=== PATIENT | female | born 1960 | race Hispanic/Latino ===

== ENCOUNTER 2017-03-20 09:41 | Inpatient (IN) | payer MEDICARE ==
[2017-03-20] MEDS ORDERED: DULCOLAX PR PRN (10:24)
[2017-03-20] MEDS ORDERED: ALUM-MAG HYDROX-SIMETH 200-200-20MG/5ML PO PRN (10:24)
--- NOTE | 2017-03-20 11:46 | Consultation ---
History of Present Illness Consult date: 03/20/17 Requesting physician: ADRIAN RASHID Consult reason: tachycardia (SVT) History of present illness: The pt is a 56 YO female with a past medical history significant for liver disease, ETOH abuse, tobacco use, COPD, GERD, hypertension, bipolar disorder, chronic low back pain, and anxiety. She is previously unknown to our practice. She was admitted to acute rehab on 03/15/2017 following hospitalization at [facility] for AMS with abnormal liver function tests and elevated ammonia levels. She is s /p paracentesis on 03/09/17 with 3.2L of fluid removed. She developed SVT this AM and thus cardiology was consulted. On initial evaluation, pt c/o SOB and palpitations. She was placed on bedside monitor which revealed SVT, HR 180s, with hypotension. Pt's HR was not responsive to carotid massage. Code METS was called. She was given IV adenosine (6mg -> 12mg) and was successfully converted to ST, HR 130s. She was then given 250mL NS bolus for persistent hypotension, which improved following IVF bolus. Past History Past Medical History: COPD, GERD, hypertension, other (bipolar; anxiety) Social history: alcohol abuse Medications and Allergies Allergies Allergy/AdvReac Type Severity Reaction Status Date / Time No Known Allergies Allergy Verified 03/14/17 22:27 Home Medications Medication Instructions Recorded Confirmed Last Taken Type No Known Home Medications [No 03/16/17 03/16/17 Unknown History Reported Home Medications] Active Meds: Active Medications Al Hydrox/Mg Hydrox/Simethicone (Alum-Mag Hydrox-Simeth 928-151-38ql/5ml) 30 ml PO Q4H PRN PRN Reason: Indigestion Albuterol/Ipratropium (Duoneb 0.5 Mg-3 Mg/3 Ml Soln) 1 ampul IH Q6HRT MAURO Bisacodyl (Dulcolax) 10 mg [place] QDAY PRN PRN Reason: constipation unrelieved by MOM Enoxaparin Sodium (Lovenox) 40 mg SUB-Q QDAY MAURO Review of Systems Constitutional: no weight loss, no weight gain, no fever, no chills, no sweats Ears, nose, mouth and throat: no ear pain, no nose pain, no sinus pressure, no sinus pain Cardiovascular: palpitations, lightheadedness, shortness of breath, no chest pain, no orthopnea, no rapid/irregular heart beat, no edema, no syncope, no dyspnea on exertion Respiratory: no cough, no congestion, no wheezing, no pain Gastrointestinal: nausea, no abdominal pain, no vomiting, no diarrhea, no constipation, no change in bowel habits Genitourinary Female: no pelvic pain, no flank pain, no dysuria, no urinary frequency, no urgency Physical Examination General appearance: mild distress HEENT: Positive: PERRL, Normocephaly, Mucus Membranes Moist Neck: Positive: neck supple, trachea midline Cardiac: Positive: S1/S2, Tachycardia Lungs: Positive: clear to auscultation Neuro: Positive: Grossly Intact Abdomen: Positive: Soft, Active Bowel Sounds Skin: Positive: Clear. Negative: Rash, Wound Musculoskeletal: No Pain, Normal Range of Motion Extremities: Present: +2 Edema (BLE pitting ) Results - Imaging and Cardiology Echo: pending EKG: report reviewed, image reviewed EKG interpretations - Telemetry EKG Rhythm: SVT Assessment and Plan Obtain echo. Await BMP, Mg, and thyroid profile. Consider digoxin if necessary for HR optimization as pt's BP will not currently permit beta-blockers. The patient has been seen in conjunction with Dr. Lanier who agrees with the assessment and plan of care. - Patient Problems (1) Paroxysmal SVT (supraventricular tachycardia) Current Visit: Yes Status: Acute (2) Hypotension Current Visit: Yes Status: Acute Qualifiers: Hypotension type: H Trimester: T (3) H/O: hypertension Current Visit: Yes Status: Chronic (4) Chronic liver disease Current Visit: Yes Status: Chronic (5) Ascites Current Visit: Yes Status: Acute Qualifiers: Ascites type: A (6) Bilateral lower extremity edema Current Visit: Yes Status: Acute (7) Hypoalbuminemia Current Visit: Yes Status: Acute (8) Anxiety Current Visit: Yes Status: Chronic (9) ETOH abuse Current Visit: No Status: Acute (10) Tobacco abuse Current Visit: No Status: Chronic
[2017-03-20] MEDS ORDERED: PROVENTIL IH PRN (12:06)
--- NOTE | 2017-03-20 13:18 | XRay Report ---
AP CHEST: HISTORY: Shortness of breath No comparison. There is poor inspiration. Subtle air space opacity is identified in the left lower lobe behind the heart. This could represent infiltrate or segmental atelectasis. The right lung is clear. Normal heart and mediastinal structures. The bony thorax is intact. IMPRESSION: Left lower lobe opacity, infiltrate versus segmental atelectasis. Please correlate with the patient's clinical presentation.
[2017-03-20] MEDS ORDERED: DUONEB 0.5 MG-3 MG/3 ML SOLN IH SCH (14:00)
[2017-03-20 14:02] LABS: Anion Gap 18 mmol/L; BUN/Creatinine Ratio 8.33; Blood Urea Nitrogen 5 mg/dL (7-17); Calcium 7.6 mg/dL (8.4-10.2); Carbon Dioxide 27 mmol/L (22-30); Chloride 98.7 mmol/L (98-107); Glucose 121 mg/dL (65-100); Potassium 3.6 mmol/L (3.6-5.0); Sodium 140 mmol/L (137-145)
[2017-03-20] MEDS ORDERED: DILAUDID IV PRN (14:58)
[2017-03-20] MEDS ORDERED: ZOFRAN IV PRN (14:58)
--- NOTE | 2017-03-20 15:03 | History and Physical Report ---
History of Present Illness Date of examination: 03/20/17 Date of admission: 03/20/17 11:09 Chief complaint: Heart palpitations History of present illness: Patient is a 56 years old with past medical history of ETOH abuse, Liver disease, Smoker, COPD, HTN, Bipolar, severe anxiety, Chronic low back pain. Patient was admitted to acute rehab following hospitalization at [facility] for liver Cirrhosis. Patient S/P paracentesis on 03/09/17 with 4.2L removed. Patient was consulted to us for elevated SVT with HR of 180's and hypotension. Patient reported shortness of breath and heart palpations other than that an asymptomatic. She was treated with adenosine 6mg x 1 then 12 mg which reverted her to a sinus rhythm to 130's. Also 250cc NS bolus was given which helped to improved blood pressure came up to 100's systolic. Patient was transferred to MED/SURG floor with TEL monitor. Past History Past Medical History: COPD, GERD, hypertension, other (bipolar; anxiety) Social history: , alcohol abuse Medications and Allergies Allergies Allergy/AdvReac Type Severity Reaction Status Date / Time No Known Allergies Allergy Verified 03/14/17 22:27 Home Medications Medication Instructions Recorded Confirmed Last Taken Type No Known Home Medications [No 03/16/17 03/16/17 Unknown History Reported Home Medications] Active Meds: Active Medications Al Hydrox/Mg Hydrox/Simethicone (Alum-Mag Hydrox-Simeth 045-374-19lx/5ml) 30 ml PO Q4H PRN PRN Reason: Indigestion Albuterol (Proventil) 2.5 mg IH Q4HRT PRN PRN Reason: Shortness Of Breath Albuterol/Ipratropium (Duoneb 0.5 Mg-3 Mg/3 Ml Soln) 1 ampul IH TIDRT MAURO Bisacodyl (Dulcolax) 10 mg [place] QDAY PRN PRN Reason: constipation unrelieved by MOM Enoxaparin Sodium (Lovenox) 40 mg SUB-Q QDAY MAURO Hydromorphone HCl (Dilaudid) 0.25 mg IV Q3H PRN PRN Reason: Pain, Moderate (4-6) Ondansetron HCl (Zofran) 3 mg IV Q4H PRN PRN Reason: Nausea And Vomiting Review of Systems Constitutional: no weight loss, no weight gain, no fever, no chills, no sweats Ears, nose, mouth and throat: no ear pain, no ear discharge, no tinnitis Breasts: normal Cardiovascular: shortness of breath, no chest pain, no orthopnea, no rapid/ irregular heart beat, no syncope Respiratory: cough, dyspnea on exertion Gastrointestinal: no abdominal pain, no nausea, no vomiting, no diarrhea, no constipation, no change in bowel habits Genitourinary Female: no dyspareunia, no dysmenorrhea, no pelvic pain, no flank pain, no menorrhagia Menstruation: no currently menstrual, no premenarcheal, no post hysterectomy Musculoskeletal: no neck stiffness, no neck pain, no shooting arm pain, no arm numbness/tingling Integumentary: no rash, no pruritis, no redness Neurological: no head injury, no transient paralysis, no paralysis, no weakness Psychiatric: no memory loss, no change in sleep habits, no sleep disturbances Endocrine: no cold intolerance, no heat intolerance, no polyphagia Hematologic/Lymphatic: no easy bruising, no easy bleeding Allergic/Immunologic: no urticaria Exam - Constitutional Vitals: Temp Pulse Resp BP Pulse Ox 98.3 F 112 H 18 103/61 97 03/20/17 12:15 03/20/17 13:41 03/20/17 13:41 03/20/17 12:15 03/20/17 13:58 General appearance: Present: no acute distress - EENT Eyes: Present: PERRL, EOM intact ENT: hearing intact, clear oral mucosa, dentition normal - Neck Neck: Present: supple, normal ROM - Respiratory Respiratory effort: labored Respiratory: bilateral: diminished - Cardiovascular Rhythm: regularly irregular Heart Sounds: Present: S1 & S2. Absent: rub, click - Extremities Extremities: no ischemia Extremity abnormal: edema, tenderness Peripheral Pulses: within normal limits - Abdominal General gastrointestinal: Present: soft, distended Female genitourinary: Present: deferred - Rectal Rectal Exam: deferred - Integumentary Integumentary: Present: clear, warm, clammy, pale - Musculoskeletal Musculoskeletal: generalized weakness - Psychiatric Psychiatric: appropriate mood/affect, intact judgment & insight - Neurologic Neurologic: CNII-XII intact, moves all extremities Results - Labs CBC & Chem 7: 03/20/17 09:41 Labs: Laboratory Last Values Sodium 140 mmol/L (137-145) 03/20/17 09:41 Potassium 3.6 mmol/L (3.6-5.0) 03/20/17 09:41 Chloride 98.7 mmol/L (98-107) 03/20/17 09:41 Carbon Dioxide 27 mmol/L (22-30) 03/20/17 09:41 Anion Gap 18 mmol/L 03/20/17 09:41 BUN 5 mg/dL (7-17) L 03/20/17 09:41 Creatinine 0.6 mg/dL (0.7-1.2) L 03/20/17 09:41 Estimated GFR > 60 ml/min 03/20/17 09:41 BUN/Creatinine Ratio 8.33 % 03/20/17 09:41 Glucose 121 mg/dL (65-100) H 03/20/17 09:41 Calcium 7.6 mg/dL (8.4-10.2) L 03/20/17 09:41 Magnesium 1.20 mg/dL (1.7-2.3) L 03/20/17 09:41 TSH 4.550 mlU/mL (0.270-4.200) H 03/20/17 09:41 Free T4 0.86 ng/dL (0.76-1.46) 03/20/17 09:41 Assessment and Plan Assessment and plan: ASSESSMENT/PLAN 1. Supraventricular tachycardia (SVT) We will admit to MED/SURG floor with remote TEL 12 lead EKG obtained we also get another EKG in order for any changes that have taken since the first obtained Cardiology consulted and came treated patient with adenosine and was successful converted to Sinus rhythm. 2. Hypotension Patient received IVF bolus of 250 ml NS and blood pressure improved and will stop due to liver cirrhosis. 3. Liver Cirrhosis Paracentesis pending GI consulted for further evaluation 4. COPD Duonebs, 5. DVT/GI prophy 6. Case discussed with patient and also with Cardiology Advance Directives: Yes Plan of care discussed with patient/family: Yes
--- NOTE | 2017-03-20 17:13 | Progress Note ---
Assessment and Plan 1. Alcoholic liver disease - with ascites. - f/u peritoneal fluid studies to ensure no infection - o/w, Na+ restriction, and diuretics. - EtOH abstinence. Subjective Date of service: 03/20/17 Interval history: Pt with EtOH liver disease and ascites, seen in Rehab yesterday in Consult. Please see note. Currently states she is well and just back from paracentesis. Objective - Constitutional Vitals: Vital Signs - 12hr 03/20/17 03/20/17 03/20/17 12:15 13:15 13:41 Temperature 98.3 F Pulse Rate [ 112 H 112 H Anterior Bilateral Throughout] Pulse Rate [ 113 H Right] Respiratory 18 Rate Respiratory 18 18 Rate [Anterior Bilateral Throughout] Blood Pressure 103/61 [Right Arm] O2 Sat by Pulse 97 Oximetry 03/20/17 03/20/17 13:42 13:58 Temperature Pulse Rate [ Anterior Bilateral Throughout] Pulse Rate [ Right] Respiratory Rate Respiratory Rate [Anterior Bilateral Throughout] Blood Pressure [Right Arm] O2 Sat by Pulse 96 97 Oximetry General appearance: Present: no acute distress - EENT Eyes: PERRL, EOM intact ENT: hearing intact - Respiratory Respiratory effort: normal - Gastrointestinal General gastrointestinal: Present: soft, tender (Mild, diffuse. ), other ( Edematous skin) - Labs CBC & Chem 7: 03/20/17 09:41 Labs: Abnormal lab results 03/20/17 03/20/17 Range/Units 09:41 09:41 BUN 5 L (7-17) mg/dL Creatinine 0.6 L (0.7-1.2) mg/dL Glucose 121 H (65-100) mg/dL Calcium 7.6 L (8.4-10.2) mg/dL Magnesium 1.20 L (1.7-2.3) mg/dL TSH 4.550 H (0.270-4.200) mlU/mL
[2017-03-20] MEDS ORDERED: NACL 0.9% 1000 ML 1,000 ML IV SCH (18:00)
[2017-03-20] MEDS: DUONEB 0.5 MG-3 MG/3 ML SOLN IH SCH (20:00)
--- NOTE | 2017-03-21 08:26 | Admit Criteria Form ---
Admission Criteria Documentation: SUPRAVENTRICULAR ARRHYTHMIAS Clinical Indications for Admission to Inpatient Care (Place 'X' for any and all applicable criteria): Admission is indicated by ANY ONE of the following (1)(2): [X]I. Arrhythmia causing significant symptoms or findings as indicated by ANY ONE of the following: [ ]a) Chest pain [ ]b) Myocardial ischemia [ ]c) Altered mental status [ ]d) Dizziness, weakness, or light-headedness [X]e) Dyspnea or hypoxemia [ ]f) Heart failure (eg, pulmonary edema)(11) [ ]II. Initiation of antiarrhythmic drug therapy is needed in patient at high risk of adverse events as indicated by ANY ONE of the following: [ ]a) Significant structural heart disease (eg, aortic stenosis, reduced ejection fraction, cardiomyopathy, congenital heart disease) [ ]b) Underlying sinus node or atrioventricular conduction disturbances [ ]c) Prolonged QT interval [ ]d) Need for treatment with antiarrhythmic that have significant proarrhythmic potential ( procainamide) [ ]e) Patient whose sinus rhythm has not been observed on ECG [ ]III. Inpatient admission required rather than observation care because of ANY ONE of the following: [ ]a) Syncope [ ]b) Patient has automatic implanted cardioverter-defibrillator that is repeatedly firing, malfunctioning, or in need of immediate adjustment of settings beyond scope of ambulatory or observation care. [ ]c) Hemodynamic instability that is severe or persistent [ ]d) Unstable cardiac conduction defects indicated by ANY ONE of the following(19)(20)(21): [ ]a) Type II second-degree atrioventricular block [ ]b) Third-degree atrioventricular block [ ]C) New-onset left bundle branch block with suspected myocardial ischemia [ ]e) Severe electrolyte abnormalities requiring inpatient care [ ]f) Continuous intravenous infusion of anticoagulation, platelet inhibitor, vasoactive, or antiarrhythmic medication(14) [ ]g) Pulmonary artery catheter monitoring [ ]h) Repeat cardioversion necessary [ ]i) Other condition, treatment or monitoring requiring inpatient admission [ ]IV. Underlying medical condition that necessitates inpatient care (eg, thyrotoxicosis, severe acidosis) Extended stay beyond goal length of stay may be needed for(1)(17)(18): [ ]a) Persistent hemodynamic instability or continued severe arrhythmia [ ]b) Continued monitoring during initiation of certain medications (eg, some antiarrhythmics)(17)(19) [ ]c) Precipitating cause requires ongoing inpatient care (eg, severe electrolyte abnormality, systemic infection, acidosis) [ ]d) Unstable comorbidities The original [facility] content created by [facility] has been revised. The portions of the content which have been revised are identified through the use of italic text or in bold, and [facility] has neither reviewed nor approved the modified material. All other unmodified content is copyright [facility]. Please see references footnoted in the original [facility] edition 2016 Admission Criteria Met: Yes
--- NOTE | 2017-03-21 08:41 | Progress Note ---
Assessment and Plan Assessment and plan: patient is a 56 years old with past medical history of ETOH abuse, Liver disease, smoker, COPD,HTN, Bipolar, Chronic low back pain. patient was admitted to acute rehab following hospitalization at [facility] for liver Cirrhosis. Patient S/P paracentesis on 03/09/17 with 4.2L removed. Patient was consulted to us for elevated SVT with HR of 180's and hypotension. Patient reported shortness of breath and heart palpations other than that an asymptomatic. She was treated with adenosine 6mg x 1 then 12 mg which reverted her to a sinus rhythm to 130's. Also 250cc NS bolus was given which helped to improved blood pressure came up to 100's systolic. Patient was transferred to MED/SURG floor with TEL monitor. 1. Supraventricular tachycardia (SVT) We will admit to MED/SURG floor with remote TEL 12 leadd EKG obtained we also get another EKG in order for any changes that have taken since the first obtained Cardiology consulted and came treated patient with adenosine and was successfuly converted to Sinus rhythm. 2. Hypotension Patient received IVF bolus of 250 ml NS and blood pressure improved 3. Liver Cirrhosis , with massive ascites Paracentesis pending, labs ordered GI consulted appreciated 4. COPD stable NTD 5. Subclinical hypothyroidism stable, NTD Hospitalist Physical - Constitutional Vitals: Temp Pulse Resp BP Pulse Ox 98.3 F 109 H 16 124/54 91 03/21/17 04:51 03/21/17 04:51 03/21/17 04:51 03/21/17 04:51 03/20/17 20:53 General appearance: Present: no acute distress Results - Labs CBC & Chem 7: 03/20/17 09:41 Labs: Laboratory Last Values Sodium 140 mmol/L (137-145) 03/20/17 09:41 Potassium 3.6 mmol/L (3.6-5.0) 03/20/17 09:41 Chloride 98.7 mmol/L (98-107) 03/20/17 09:41 Carbon Dioxide 27 mmol/L (22-30) 03/20/17 09:41 Anion Gap 18 mmol/L 03/20/17 09:41 BUN 5 mg/dL (7-17) L 03/20/17 09:41 Creatinine 0.6 mg/dL (0.7-1.2) L 03/20/17 09:41 Estimated GFR > 60 ml/min 03/20/17 09:41 BUN/Creatinine Ratio 8.33 % 03/20/17 09:41 Glucose 121 mg/dL (65-100) H 03/20/17 09:41 Calcium 7.6 mg/dL (8.4-10.2) L 03/20/17 09:41 Magnesium 1.20 mg/dL (1.7-2.3) L 03/20/17 09:41 TSH 4.550 mlU/mL (0.270-4.200) H 03/20/17 09:41 Free T4 0.86 ng/dL (0.76-1.46) 03/20/17 09:41
[2017-03-21] MEDS: DUONEB 0.5 MG-3 MG/3 ML SOLN IH SCH ×3 (09:18→20:04)
[2017-03-21 10:04] LABS: Basophils % (Auto) 0.8 % (0.0-1.8); Eosinophils % (Auto) 1.3 % (0.0-4.3); Hematocrit 29.7 % (30.3-42.9); Hemoglobin 10.1 gm/dl (10.1-14.3); Mean Corpuscular HGB Conc 34 % (30-34); Mean Corpuscular Hemoglobin 35 pg (28-32); Mean Corpuscular Volume 103 fl (79-97); Platelet Count 283 K/mm3 (140-440); Red Cell Distribution Width 14.3 % (13.2-15.2)
[2017-03-21 10:38] LABS: Alanine Aminotransferase 31 units/L (7-56); Albumin 2.1 g/dL (3.9-5); Albumin/Globulin Ratio 0.5 %; Alkaline Phosphatase 203 units/L (35-129); Anion Gap 15 mmol/L; BUN/Creatinine Ratio 6.66; Blood Urea Nitrogen 4 mg/dL (7-17); Carbon Dioxide 27 mmol/L (22-30); Chloride 100.7 mmol/L (98-107); Glucose 114 mg/dL (65-100); Potassium 3.1 mmol/L (3.6-5.0); Sodium 140 mmol/L (137-145); Total Protein 6.4 g/dL (6.3-8.2)
[2017-03-21] MEDS: LOVENOX SUB-Q SCH (10:45)
[2017-03-21] MEDS: PERCOCET 5/325 PO PRN ×2 (11:52→21:50)
[2017-03-21] MEDS ORDERED: K-DUR PO ONE (12:00)
--- NOTE | 2017-03-21 12:36 | Progress Note ---
Assessment and Plan Await echo. Replete Mg and K+. Repeat BMP and Mg in AM. Initiate aldactone and lasix. Consider digoxin if necessary for HR optimization. The patient has been seen in conjunction with Dr. Lanier who agrees with the assessment and plan of care. - Patient Problems (1) Paroxysmal SVT (supraventricular tachycardia) Current Visit: Yes Status: Acute (2) Sinus tachycardia Current Visit: Yes Status: Acute (3) Hypotension Current Visit: Yes Status: Acute Qualifiers: Hypotension type: H Trimester: T (4) H/O: hypertension Current Visit: Yes Status: Chronic (5) Chronic liver disease Current Visit: Yes Status: Chronic (6) Ascites Current Visit: Yes Status: Acute Qualifiers: Ascites type: A (7) Bilateral lower extremity edema Current Visit: Yes Status: Acute (8) Hypoalbuminemia Current Visit: Yes Status: Acute (9) Anxiety Current Visit: Yes Status: Chronic (10) ETOH abuse Current Visit: No Status: Acute (11) Tobacco abuse Current Visit: No Status: Chronic Subjective Date of service: 03/21/17 Principal diagnosis: SVT Interval history: Pt resting comfortably in bed, denies any cardiac complaints. States she feels "fantastic" but c/o anxiety, which is chronic. In ST on tele, HR 110s, no SVT overnight. Objective Last Vital Signs Temp 99.0 F 03/21/17 08:00 Pulse 113 H 03/21/17 09:40 Resp 18 03/21/17 09:40 BP 98/68 03/21/17 08:00 Pulse Ox 97 03/21/17 11:19 - Physical Examination General: Other (anxious) HEENT: Positive: PERRL, Normocephaly, Mucus Membranes Moist Neck: Positive: neck supple, trachea midline Cardiac: Positive: Regular Rhythm, S1/S2, Tachycardia Lungs: Positive: Normal Exam Neuro: Positive: Grossly Intact Abdomen: Positive: Soft, Active Bowel Sounds Skin: Positive: Clear. Negative: Rash, Wound Musculoskeletal: No Pain, Normal Range of Motion Extremities: Present: +1 Edema (BLE pitting edema ) - Labs and Meds Cardiac Enzymes 03/21/17 Range/Units 09:49 AST 51 H (5-40) units/L CBC 03/21/17 Range/Units 09:49 WBC 10.0 (4.5-11.0) K/mm3 RBC 2.90 L (3.65-5.03) M/mm3 Hgb 10.1 (10.1-14.3) gm/dl Hct 29.7 L (30.3-42.9) % Plt Count 283 (140-440) K/mm3 Lymph # 1.7 (1.2-5.4) K/mm3 [place] # 0.9 H (0.0-0.8) K/mm3 Eos # 0.1 (0.0-0.4) K/mm3 Baso # 0.1 (0.0-0.1) K/mm3 Comprehensive Metabolic Panel 03/20/17 03/21/17 Range/Units 09:41 09:49 Sodium 140 140 (137-145) mmol/L Potassium 3.6 3.1 L (3.6-5.0) mmol/L Chloride 98.7 100.7 (98-107) mmol/L Carbon Dioxide 27 27 (22-30) mmol/L BUN 5 L 4 L (7-17) mg/dL Creatinine 0.6 L 0.6 L (0.7-1.2) mg/dL Glucose 121 H 114 H (65-100) mg/dL Calcium 7.6 L (8.4-10.2) mg/dL AST 51 H (5-40) units/L ALT 31 (7-56) units/L Alkaline Phosphatase 203 H (35-129) units/L Total Protein 6.4 (6.3-8.2) g/dL Albumin 2.1 L (3.9-5) g/dL - Imaging and Cardiology EKG: report reviewed, image reviewed Echo: pending - Telemetry EKG Rhythm: Sinus Tachycardia
[2017-03-21 12:40] LABS: Basophils Body Fluid 0 %; Eosinophils Body Fluid 0 %
[2017-03-21 12:43] LABS: Calcium 7.5 mg/dL (8.4-10.2)
[2017-03-21] MEDS: MAGNESIUM SULFATE 2GM/50ML 2 GM/50 ML BAG IV SCH ×2 (12:48→20:30)
[2017-03-21] MEDS ORDERED: LASIX PO SCH (14:00)
--- NOTE | 2017-03-21 16:08 | Progress Note ---
Assessment and Plan 1. Alcoholic liver disease - with ascites. s/p paracentesis. Fluid analysis shows no evidence of infection. - will need prn paracentesis - o/w, Na+ restriction, and diuretics, with spironolactone and furosemide. - EtOH abstinence. Subjective Date of service: 03/21/17 Principal diagnosis: SVT Interval history: Pt states stomach feels better, and leg edema is gone. Objective - Constitutional Vitals: Vital Signs - 12hr 03/21/17 03/21/17 03/21/17 04:48 04:51 08:00 Temperature 98.3 F 98.3 F 99.0 F Pulse Rate 109 H 109 H 113 H Pulse Rate [ Anterior Bilateral Throughout] Respiratory 18 16 18 Rate Respiratory Rate [Anterior Bilateral Throughout] Blood Pressure 124/54 124/54 98/68 [Left] O2 Sat by Pulse 18 L Oximetry 03/21/17 03/21/17 03/21/17 09:20 09:40 10:00 Temperature Pulse Rate Pulse Rate [ 73 113 H Anterior Bilateral Throughout] Respiratory Rate Respiratory 18 18 Rate [Anterior Bilateral Throughout] Blood Pressure [Left] O2 Sat by Pulse 97 Oximetry 03/21/17 11:19 Temperature Pulse Rate Pulse Rate [ Anterior Bilateral Throughout] Respiratory Rate Respiratory Rate [Anterior Bilateral Throughout] Blood Pressure [Left] O2 Sat by Pulse 97 Oximetry General appearance: Present: no acute distress - EENT Eyes: PERRL, EOM intact ENT: hearing intact - Respiratory Respiratory effort: normal - Gastrointestinal General gastrointestinal: Present: soft, tender (Mild diffuse) - Labs CBC & Chem 7: 03/21/17 09:49 03/21/17 09:49 Labs: Abnormal lab results 03/21/17 03/21/17 03/21/17 Range/Units 09:49 09:49 09:49 RBC 2.90 L (3.65-5.03) M/mm3 Hct 29.7 L (30.3-42.9) % MCV 103 H (79-97) fl MCH 35 H (28-32) pg [place] % (Auto) 8.6 H (0.0-7.3) % [place] # 0.9 H (0.0-0.8) K/mm3 Seg Neutrophils % 72.5 H (40.0-70.0) % Potassium 3.1 L (3.6-5.0) mmol/L BUN 4 L (7-17) mg/dL Creatinine 0.6 L (0.7-1.2) mg/dL Glucose 114 H (65-100) mg/dL Calcium 7.5 L (8.4-10.2) mg/dL Magnesium 1.10 L (1.7-2.3) mg/dL Total Bilirubin 1.60 H (0.1-1.2) mg/dL AST 51 H (5-40) units/L Alkaline Phosphatase 203 H (35-129) units/L Albumin 2.1 L (3.9-5) g/dL
[2017-03-21] MEDS ORDERED: LASIX PO ONE (17:00)
[2017-03-22 06:16] LABS: Anion Gap 13 mmol/L; BUN/Creatinine Ratio 6.66; Blood Urea Nitrogen 4 mg/dL (7-17); Calcium 7.4 mg/dL (8.4-10.2); Carbon Dioxide 26 mmol/L (22-30); Chloride 101.6 mmol/L (98-107); Glucose 79 mg/dL (65-100); Sodium 138 mmol/L (137-145)
[2017-03-22] MEDS: DUONEB 0.5 MG-3 MG/3 ML SOLN IH SCH ×3 (07:40→19:29)
--- NOTE | 2017-03-22 07:57 | Ultrasound Report ---
ULTRASOUND PARACENTESIS HISTORY: Ascites. DESCRIPTION OF PROCEDURE: Informed consent was obtained. Sterile technique was utilized. 1% lidocaine for skin anesthesia. Using ultrasound guidance, a 5 Kyrgyz centesis needle was advanced into the right lower quadrant peritoneal space. There was spontaneous return of clear yellow fluid. 5.4 L of fluid was aspirated. 120 cc of fluid was sent to lab for analysis. No complications. IMPRESSION: Successful ultrasound guided paracentesis as described.
[2017-03-22] MEDS: PERCOCET 5/325 PO PRN ×3 (08:43→21:27)
[2017-03-22] MEDS ORDERED: ALDACTONE PO SCH (10:00)
--- NOTE | 2017-03-22 10:24 | Procedure Note ---
Date of procedure: 03/20/17 Pre-op diagnosis: ascites Post-op diagnosis: same Procedure: US paracentesis Findings: large ascites Anesthesia: local Surgeon: MAUREEN ZELAYA Estimated blood loss: none Pathology: list (120cc) Specimen disposition: to lab Condition: stable Disposition: floor
--- NOTE | 2017-03-22 11:10 | Progress Note ---
Assessment and Plan Echo reviewed with NAF. Initiate lopressor, 12.5mg PO BID. Replete K+. Repeat BMP in AM. Consider PT consult per primary. Currently stable cardiac status. Will see PRN. The patient has been seen in conjunction with Dr. Lanier who agrees with the assessment and plan of care. - Patient Problems (1) Paroxysmal SVT (supraventricular tachycardia) Current Visit: Yes Status: Acute (2) Sinus tachycardia Current Visit: Yes Status: Acute (3) Hypotension Current Visit: Yes Status: Acute Qualifiers: Hypotension type: H Trimester: T (4) H/O: hypertension Current Visit: Yes Status: Chronic (5) Chronic liver disease Current Visit: Yes Status: Chronic (6) Ascites Current Visit: Yes Status: Acute Qualifiers: Ascites type: A (7) Bilateral lower extremity edema Current Visit: Yes Status: Acute (8) Hypoalbuminemia Current Visit: Yes Status: Acute (9) Anxiety Current Visit: Yes Status: Chronic (10) ETOH abuse Current Visit: No Status: Acute (11) Tobacco abuse Current Visit: No Status: Chronic Subjective Date of service: 03/22/17 Principal diagnosis: SVT Interval history: Pt resting comfortably in bed, denies any cardiac complaints. In ST on tele, HR 100s, no SVT overnight. Objective Last Vital Signs Temp 98.1 F 03/22/17 07:00 Pulse 110 H 03/22/17 07:00 Resp 18 03/22/17 07:00 BP 114/56 03/22/17 07:00 Pulse Ox 93 03/22/17 07:00 - Physical Examination General: Appears Well, No Apparent Distress HEENT: Positive: PERRL, Normocephaly, Mucus Membranes Moist Neck: Positive: neck supple, trachea midline Cardiac: Positive: Regular Rhythm, S1/S2, Tachycardia Lungs: Positive: clear to auscultation Neuro: Positive: Grossly Intact Abdomen: Positive: Soft, Active Bowel Sounds Skin: Positive: Clear. Negative: Rash, Wound Musculoskeletal: No Pain, Normal Range of Motion Extremities: Present: +1 Edema (BLE pitting edema ) - Labs and Meds Comprehensive Metabolic Panel 03/21/17 03/22/17 Range/Units 09:49 05:14 Sodium 138 (137-145) mmol/L Potassium 3.0 L (3.6-5.0) mmol/L Chloride 101.6 (98-107) mmol/L Carbon Dioxide 26 (22-30) mmol/L BUN 4 L (7-17) mg/dL Creatinine 0.6 L (0.7-1.2) mg/dL Glucose 79 (65-100) mg/dL Calcium 7.5 L 7.4 L (8.4-10.2) mg/dL - Imaging and Cardiology EKG: report reviewed, image reviewed Echo: report reviewed - Telemetry EKG Rhythm: Sinus Tachycardia
[2017-03-22] MEDS: LOVENOX SUB-Q SCH (11:49)
[2017-03-22] MEDS: K-DUR PO SCH ×2 (11:50→17:12)
[2017-03-22] MEDS: ALDACTONE PO SCH (11:52)
[2017-03-22] MEDS: LOPRESSOR PO SCH ×2 (11:53→21:26)
--- NOTE | 2017-03-22 15:40 | Progress Note ---
Assessment and Plan Assessment and plan: patient is a 56 years old with past medical history of ETOH abuse, Liver disease, smoker, COPD,HTN, Bipolar, Chronic low back pain. patient was admitted to acute rehab following hospitalization at [facility] for liver Cirrhosis. Patient S/P paracentesis on 03/09/17 with 4.2L removed. Patient was consulted to us for elevated SVT with HR of 180's and hypotension. Patient reported shortness of breath and heart palpations other than that an asymptomatic. She was treated with adenosine 6mg x 1 then 12 mg which reverted her to a sinus rhythm to 130's. Also 250cc NS bolus was given which helped to improved blood pressure came up to 100's systolic. Patient was transferred to MED/SURG floor with TEL monitor. 1. Supraventricular tachycardia (SVT) cardiology input appreciated, continue metoprolol Echo reviewed, EF 65% 2. Hypotension Patient received IVF bolus of 250 ml NS and blood pressure improved 3. Liver Cirrhosis , with massive ascites Paracentesis performed, diuretics adjusted GI consulted appreciated 4. COPD stable NTD 5. Subclinical hypothyroidism stable, NTD 6. Hypokalemia - repleted and placed on K sparing diuretic 7. Debility PT consult; planned for home with home PT Total Time Spent with Patient (Minutes): 35 History Interval history: Patient was consulted to us for elevated SVT with HR of 180's and hypotension. Patient an eventful night and she verbalized she wants to go home, she denies shortness of breath, heart palpitation and chest pain. Hospitalist Physical - Constitutional Vitals: Temp Pulse Resp BP Pulse Ox 98.1 F 97 H 18 114/56 93 03/22/17 07:00 03/22/17 13:50 03/22/17 13:50 03/22/17 11:53 03/22/17 10:00 General appearance: Present: no acute distress - EENT Eyes: Present: PERRL ENT: hearing intact, clear oral mucosa - Neck Neck: Present: supple - Respiratory Respiratory effort: normal - Cardiovascular Heart rate: 110 Rhythm: regularly irregular Heart Sounds: Present: S1 & S2 Peripheral Pulses: within normal limits - Abdominal General gastrointestinal: distended Localized gastrointestinal: tender: RUQ, LUQ, RLQ, LLQ - Integumentary Integumentary: Present: clear, warm - Psychiatric Psychiatric: appropriate mood/affect - Neurologic Neurologic: CNII-XII intact - Allied Health Allied health notes reviewed: nursing Results - Labs CBC & Chem 7: 03/21/17 09:49 03/23/17 07:21 Labs: Laboratory Last Values WBC 10.0 K/mm3 (4.5-11.0) 03/21/17 09:49 RBC 2.90 M/mm3 (3.65-5.03) L 03/21/17 09:49 Hgb 10.1 gm/dl (10.1-14.3) 03/21/17 09:49 Hct 29.7 % (30.3-42.9) L 03/21/17 09:49 MCV 103 fl (79-97) H 03/21/17 09:49 MCH 35 pg (28-32) H 03/21/17 09:49 MCHC 34 % (30-34) 03/21/17 09:49 RDW 14.3 % (13.2-15.2) 03/21/17 09:49 Plt Count 283 K/mm3 (140-440) 03/21/17 09:49 Lymph % (Auto) 16.8 % (13.4-35.0) 03/21/17 09:49 Ray % (Auto) 8.6 % (0.0-7.3) H 03/21/17 09:49 Eos % (Auto) 1.3 % (0.0-4.3) 03/21/17 09:49 Baso % (Auto) 0.8 % (0.0-1.8) 03/21/17 09:49 Lymph # 1.7 K/mm3 (1.2-5.4) 03/21/17 09:49 Ray # 0.9 K/mm3 (0.0-0.8) H 03/21/17 09:49 Eos # 0.1 K/mm3 (0.0-0.4) 03/21/17 09:49 Baso # 0.1 K/mm3 (0.0-0.1) 03/21/17 09:49 Seg Neutrophils % 72.5 % (40.0-70.0) H 03/21/17 09:49 Seg Neutrophils # 7.2 K/mm3 (1.8-7.7) 03/21/17 09:49 Sodium 138 mmol/L (137-145) 03/22/17 05:14 Potassium 3.0 mmol/L (3.6-5.0) L 03/22/17 05:14 Chloride 101.6 mmol/L (98-107) 03/22/17 05:14 Carbon Dioxide 26 mmol/L (22-30) 03/22/17 05:14 Anion Gap 13 mmol/L 03/22/17 05:14 BUN 4 mg/dL (7-17) L 03/22/17 05:14 Creatinine 0.6 mg/dL (0.7-1.2) L 03/22/17 05:14 Estimated GFR > 60 ml/min 03/22/17 05:14 BUN/Creatinine Ratio 6.66 % 03/22/17 05:14 Glucose 79 mg/dL (65-100) 03/22/17 05:14 Calcium 7.4 mg/dL (8.4-10.2) L 03/22/17 05:14 Magnesium 1.70 mg/dL (1.7-2.3) 03/22/17 05:14 Total Bilirubin 1.60 mg/dL (0.1-1.2) H 03/21/17 09:49 AST 51 units/L (5-40) H 03/21/17 09:49 ALT 31 units/L (7-56) 03/21/17 09:49 Alkaline Phosphatase 203 units/L (35-129) H 03/21/17 09:49 Total Protein 6.4 g/dL (6.3-8.2) 03/21/17 09:49 Albumin 2.1 g/dL (3.9-5) L 03/21/17 09:49 Albumin/Globulin Ratio 0.5 % 03/21/17 09:49 TSH 4.550 mlU/mL (0.270-4.200) H 03/20/17 09:41 Free T4 0.86 ng/dL (0.76-1.46) 03/20/17 09:41 Fluid Type Paracentesis 03/20/17 Unknown Fluid Color Straw 03/20/17 Unknown Fluid Appearance Clear 03/20/17 Unknown Fluid WBC 7 /mm3 03/20/17 Unknown Fluid RBC 9 /mm3 03/20/17 Unknown Fluid Seg Neutrophils 42.0 % 03/20/17 Unknown Fluid Lymphocytes 11.0 % 03/20/17 Unknown Fluid Reactive Lymphs 1.0 % 03/20/17 Unknown Fluid Monocytes 46.0 % 03/20/17 Unknown Fluid Eosinophils 0 % 03/20/17 Unknown Fluid Basophils 0 % 03/20/17 Unknown
[2017-03-22] MEDS ORDERED: K-DUR PO ONE (17:00)
--- NOTE | 2017-03-22 20:58 | Cat Scan Report ---
FINAL REPORT PROCEDURE: CT HEAD/BRAIN WO CON TECHNIQUE: Computerized tomography of the head was performed without contrast material. HISTORY: knot of back head and knot left side head COMPARISON: No prior studies are available for comparison. FINDINGS: Visualized portions of the paranasal sinuses and mastoid air cells are clear. Scalp swelling is seen in the left occipital region. No calvarial fracture is seen. Cerebral ventricles are normal in size. No CVA is seen. No acute intracranial hemorrhage or mass effect is seen. Mild diffuse volume loss in the brain may be slightly advanced for the patient's age. IMPRESSION: Cerebral volume loss may be mildly advanced for the patient's age. No calvarial fracture or acute intracranial hemorrhage is seen.
[2017-03-22] MEDS ORDERED: PAXIL PO SCH (22:00)
[2017-03-22] MEDS ORDERED: ZOCOR PO SCH (22:00)
[2017-03-23] MEDS: DUONEB 0.5 MG-3 MG/3 ML SOLN IH SCH ×2 (07:34→13:20)
--- NOTE | 2017-03-23 09:22 | Gastroenterology Progress Note ---
Assessment and Plan 1. ascites 2. Alcoholic liver disease - s/p paracentesis- Fluid analysis shows no evidence of infection - will need prn paracentesis - low sodium diet - continue diuretics - EtOH abstinence discussed with patient - no further recommendations per GI, will sign off Subjective Date of service: 03/23/17 Principal diagnosis: chronic liver disease, ascites Interval history: Patient resting in bed. No acute distress. Denies SOB, abd pain, or N/V. States she feels better and is ready to go home. Objective - Constitutional Vitals: Temp Pulse Resp BP Pulse Ox 98.2 F 50 L 18 132/79 93 03/23/17 00:00 03/23/17 00:00 03/23/17 00:00 03/23/17 00:00 03/23/17 00:00 General appearance: no acute distress - EENT Eyes: PERRL, EOM intact ENT: hearing intact - Neck Neck: supple - Respiratory Respiratory: bilateral: CTA (anterior) - Cardiovascular Rhythm: regular Heart Sounds: Present: S1 & S2 - Extremities Extremity abnormal: edema (+1 BLE-improving) - Gastrointestinal General gastrointestinal: Present: non-tender, distended, normal bowel sounds - Integumentary Integumentary: Present: warm, dry - Neurologic Neurological: alert and oriented x3 - Psychiatric Psychiatric: appropriate mood/affect, cooperative - Labs CBC & Chem 7: 03/21/17 09:49 03/23/17 07:21
[2017-03-23 09:24] LABS: Anion Gap 15 mmol/L; BUN/Creatinine Ratio 8.33; Blood Urea Nitrogen 5 mg/dL (7-17); Calcium 7.6 mg/dL (8.4-10.2); Carbon Dioxide 24 mmol/L (22-30); Chloride 102.3 mmol/L (98-107); Glucose 65 mg/dL (65-100); Potassium 4.7 mmol/L (3.6-5.0); Sodium 137 mmol/L (137-145)
[2017-03-23] MEDS: LOVENOX SUB-Q SCH (09:58)
[2017-03-23] MEDS: PERCOCET 5/325 PO PRN (09:58)
[2017-03-23] MEDS: ALDACTONE PO SCH (09:58)
[2017-03-23] MEDS: LOPRESSOR PO SCH (09:59)
[2017-03-23] MEDS ORDERED: DESYREL PO SCH (10:00)
[2017-03-23 11:27] VITALS: BP 90/53
--- NOTE | 2017-03-23 17:35 | Discharge Summary ---
Providers - Providers Date of Admission: 03/20/17 11:09 Date of discharge: 03/23/17 Attending physician: IMELDA REYES MD 03/20/17 10:32 Consult to Physician [CONS] Routine Consulting Provider: JOSÉ MIGUEL PRITCHETT Reason For Exam: Ascites Place consult to:: YES Notified:: NO 03/23/17 09:07 Physical Therapy Evaluation and Treat [CONS] Urgent Comment: Reason For Exam: Gen weakness Referring MD: IMELDA REYES 03/23/17 09:08 Occupational Therapy Evaluate and Treat [CONS] Urgent Comment: Reason For Exam: Gen. weakness Primary care physician: BALBIR EGAN Hospitalization Condition: Good Hospital course: Patient is a 56 years old with past medical history of ETOH abuse, Liver disease, Smoker, COPD, HTN, Bipolar, severe anxiety, Chronic low back pain. Patient was admitted to acute rehab following hospitalization at [facility] for liver Cirrhosis. Patient S/P paracentesis on 03/09/17 with 4.2L removed. Patient was consulted to us for elevated SVT with HR of 180's and Hypotension. She was treated with adenosine for SVT and patient currently sinus rhythm with HR of low 100's. No another episode of arrhythmias. Patient is discharged with Metoprolol 12.5mg. Hypotension was improved with bolus of NS, BP is stable at present time. patient had paracentesis and fluid analysis shows no evidence of infection. patient states she feels better and is ready to go home; She will follow up with her PCP Disposition: DC-01 TO HOME OR SELFCARE Core Measure Documentation - Core Measures Any of the following diagnoses?: DVT/PE - VTE Discharge Requirements Deep Vein Thrombosis/Pulmonary Embolism Present on Admission: Yes - Heart Failure Discharge Requirements EVELINA/ARB for LVSD if EF <40%: Yes Beta asia at discharge: Yes Exam - Constitutional Vitals: Temp Pulse Resp BP Pulse Ox 99.1 F 106 H 18 90/53 90 03/23/17 08:15 03/23/17 13:30 03/23/17 13:30 03/23/17 08:15 03/23/17 08:15 General appearance: Present: no acute distress, well-nourished - EENT Eyes: Present: PERRL, EOM intact ENT: hearing intact, clear oral mucosa, dentition normal - Neck Neck: Present: supple - Respiratory Respiratory effort: normal Respiratory: left: CTA, diminished - Extremities Extremities: no ischemia Extremity abnormal: edema (Lower Extremity) Peripheral Pulses: within normal limits - Abdominal General gastrointestinal: Present: soft, tender Localized gastrointestinal: tender: RUQ, LUQ, RLQ, LLQ Female genitourinary: Present: deferred - Rectal Rectal Exam: deferred - Integumentary Integumentary: Present: clear, warm, dry - Musculoskeletal Musculoskeletal: strength equal bilaterally - Psychiatric Psychiatric: appropriate mood/affect - Neurologic Neurologic: CNII-XII intact - Allied Health Allied health notes reviewed: nursing Plan Activity: advance as tolerated, up only with assistance, fall precautions Diet: low fat, low cholesterol, low salt Wound: keep clean and dry Special Instructions: follow up in rehab Follow up with: BALBIR EGAN MD [Primary Care Provider] - 7 Days Prescriptions: Metoprolol [Lopressor TAB] 12.5 mg PO BID #60 tablet oxyCODONE /ACETAMINOPHEN [Percocet 5/325 mg] 2 tab PO Q6H PRN #14 tablet PRN Reason: Pain, Moderate (4-6) PARoxetine [Paxil] 40 mg PO HS #30 tablet MDD 40 mg QUEtiapine [SEROquel] 200 mg PO HS #30 tablet MDD 200 mg Simvastatin [Zocor TAB] 20 mg PO DAILY #30 tablet MDD 20 mg Spironolactone [Aldactone] 50 mg PO QDAY #30 tablet traZODone [Desyrel] 50 mg PO DAILY #30 tablet MDD 50 mg
[2017-03-23 23:19] LABS: LDH,Body Fluid 21; Total Protein,Body Fluid < 3.0 (15.0-45.0)
== END 2017-03-23 16:12 | disposition home health service (06) | DRG 433 ==
LOC: CC1 09:41 → UNDOADMIN 09:41 → 3A 11:09
PROVIDERS: ADMIT Internal Medicine; ATTEND Internal Medicine
PROC: 0W9G3ZX Drainage of Peritoneal Cavity, Percutaneous Approach, Diagnostic (ICD-10-PCS; principal; 2017-03-22)
DX: K70.31 Alcoholic cirrhosis of liver with ascites (principal); I47.1 Supraventricular tachycardia; K21.9 Gastro-esophageal reflux disease without esophagitis; J44.9 Chronic obstructive pulmonary disease, unspecified; I10 Essential (primary) hypertension; I95.9 Hypotension, unspecified; E87.6 Hypokalemia; F31.9 Bipolar disorder, unspecified; F41.9 Anxiety disorder, unspecified; G89.29 Other chronic pain; M54.5 Low back pain; F10.10 Alcohol abuse, uncomplicated; R60.0 Localized edema; E88.09 Other disorders of plasma-protein metabolism, not elsewhere classified; F17.200 Nicotine dependence, unspecified, uncomplicated; E02 Subclinical iodine-deficiency hypothyroidism
CPT/HCPCS: 36415; 49083; 70450; 71010; 80048; 80053; 82040; 83605; 83735; 84160; 84439; 84443; 85025; 87116; 88112; 88305; 89051; 93306; 94640; 94760; 99406; J1650; J3475